=== PATIENT | male | born 1970 | race Caucasian/White ===

== ENCOUNTER 2017-11-06 22:04 | Emergency (ER) | payer MEDICAID, OTHER ==
[2017-11-06 22:10] VITALS: BP 114/67; PULSE 74; RESP 16; TEMP 97.5; O2SAT 98
--- NOTE | 2017-11-07 00:23 | ED PDOC ---
HPI: Psych/Substance Abuse Time Seen by Provider: 11/06/17 22:13 Chief Complaint (Nursing): Substance Abuse Chief Complaint (Provider): Substance Abuse History Per: Patient, EMS History/Exam Limitations: no limitations Onset/Duration Of Symptoms: Hrs (prior to arrival) Current Symptoms Are (Timing): Still Present Additional Complaint(s): Lele Clemente is a 47 year old male with no past medical history, who was brought to the ER by EMS for evaluation of substance abuse, s/p finding him laying on the ground on [address], prior to arrival. Patient admits to using K2 and states that he fell asleep after. He offers no other medical complaints and states that he did not want to come to the ER but was forced to by EMS. Patient denies any chest pain, shortness of breath, headaches, suicidal or homicidal ideation. PMD: none provided Past Medical History Reviewed: Historical Data, Nursing Documentation, Vital Signs Vital Signs: Last Vital Signs Temp 97.5 F L 11/06/17 22:05 Pulse 74 11/06/17 22:05 Resp 16 11/06/17 22:05 BP 114/67 11/06/17 22:05 Pulse Ox 98 11/06/17 22:05 - Medical History PMH: No Chronic Diseases - Surgical History Surgical History: No Surg Hx - Family History Family History: States: Unknown Family Hx - Social History Current smoker - smoking cessation education provided: Yes Alcohol: Other (uses, unspecified quantity) Drugs: Other (uses, unspecified ) - Home Medications Home Medications: Ambulatory Orders Medication Instructions Recorded No Known Home Med 06/11/15 - Allergies Allergies/Adverse Reactions: Allergies Allergy/AdvReac Type Severity Reaction Status Date / Time No Known Allergies Allergy Verified 06/11/15 19:56 Review of Systems ROS Statement: Except As Marked, All Systems Reviewed And Found Negative Cardiovascular: Negative for: Chest Pain Respiratory: Negative for: Shortness of Breath Neurological: Negative for: Headache Psych: Negative for: Suicidal ideation, Other (homicidal ideation) Physical Exam - Reviewed Nursing Documentation Reviewed: Yes Vital Signs Reviewed: Yes - Physical Exam Comments: GENERAL APPEARANCE: Patient is awake, alert, oriented x 3, in no acute distress. SKIN: Warm, dry; (-) cyanosis HEAD: (-) scalp swelling, (-) scalp tenderness. EYES: (-) conjunctival pallor, (-) scleral icterus, (-) nystagmus. ENMT: Mucous membranes moist. Airway patent: (-) stridor. NECK: Supple, FROM (-) tenderness, (-) stiffness, (-) lymphadenopathy. CHEST AND RESPIRATORY: (-) rales, (-) rhonchi, (-) wheezes; breath sounds equal. ABDOMEN: Soft, (-) distention, (-) tenderness, (-) guarding. NEURO AND PSYCH:(+) Awake, alert, oriented x3. (+) ambulatory in ED with a steady, unassisted gait. . Affect: Calm and cooperative. director of cardiopulmonary services: Intact. Pupils equal and reactive; EOMI; (-) facial asymmetry; tongue and uvula midline. - ECG O2 Sat by Pulse Oximetry: 98 (RA) Pulse Ox Interpretation: Normal Medical Decision Making Medical Decision Making: Time: 22:27 Patient is stable and offers no medical complaints upon arrival to the ED. He is alert, awake, and oriented. Upon provider evaluation, patient requires no further intervention at the ER and is stable to be discharged. VSS. Based on history, exam and diagnostic results, plan will be for outpatient follow up. Patient instructed to follow-up with pmd / referral provided / the clinic in 1- 2 days without fail. Return to the emergency room at any time for any new or worsening symptoms. Patient states he fully agrees with and understands discharge instructions. States that he agrees with the plan and disposition. Verbalized and repeated discharge instructions and plan. I have given the patient opportunity to ask any additional questions. Scribe Attestation: Documented by Gardenia Barksdale acting as a scribe for Nancy Ritter PA-C., MD Scribe Attestation: All medical record entries made by the Scribe were at my direction and personally dictated by me. I have reviewed the chart and agree that the record accurately reflects my personal performance of the history, physical exam, medical decision making, and the department course for this patient. I have also personally directed, reviewed, and agree with the discharge instructions and disposition. Disposition - Clinical Impression Clinical Impression: Substance abuse - Patient ED Disposition Is Patient to be Admitted: No Counseled Patient/Family Regarding: Diagnosis, Need For Followup - Disposition [facility] [[facility] Disposition: Routine/Home Disposition Time: 22:27 Condition: FAIR Instructions: Drug Abuse Treatment Forms: [employer] (Irish) Print Language: NEPALESE
== END 2017-11-06 22:35 | disposition home or self-care (01) ==
LOC: H.ER 22:04
DX: F19.10 Other psychoactive substance abuse, uncomplicated (principal); F17.200 Nicotine dependence, unspecified, uncomplicated

== ENCOUNTER 2018-01-19 17:34 | Emergency (ER) | payer MEDICAID, OTHER ==
[2018-01-19 17:40] VITALS: TEMP 97.9
[2018-01-19] MEDS ORDERED: Tdap Vaccine 0.5 ml Vial (10-64 yrs) IM ONE ×2 (18:51→21:11)
[2018-01-19 19:18] LABS: BASO # 0.1 K/uL (0.0-0.2); BASO % 0.7 % (0.0-2.0); EOS # 0.2 K/uL (0.0-0.7); EOS % 2.9 % (0.0-4.0); HEMOGLOBIN 14.2 g/dL (12.0-18.0); LYMPH # 1.8 K/uL (1.0-4.3); LYMPH % 21.7 % (20.0-40.0); MEAN CELL VOLUME 84.7 fl (80.0-94.0); MEAN CORPUSCULAR HEMOGLOBIN 28.5 pg (27.0-31.0); MEAN CORPUSCULAR HGB CONC 33.6 g/dL (33.0-37.0); MEAN PLATELET VOLUME 8.4 fl (7.2-11.7); MONO # 0.7 K/uL (0.0-0.8); MONO % 8.7 % (0.0-10.0); NEUT # 5.5 K/uL (1.8-7.0); NRBC % 0.2 % (0.0-0.0); RBC 4.99 Mil/uL (4.40-5.90); RED CELL DISTRIBUTION WIDTH 14.9 % (11.5-14.5); WHITE BLOOD COUNT 8.4 K/uL (4.8-10.8)
[2018-01-19 19:19] LABS: ALB/GLOB RATIO 1.1 (1.0-2.1); ALBUMIN 3.5 g/dL (3.5-5.0); ALT/SGPT 67 U/L (21-72); AST/SGOT 39 U/L (17-59); BLOOD UREA NITROGEN 16 mg/dl (9-20); CALCIUM 8.5 mg/dL (8.4-10.2); GFR AFRICAN-AMERICAN > 60; GFR NON-AFRICAN AMERICAN > 60
--- NOTE | 2018-01-19 19:59 | ED PDOC ---
HPI: General Adult Time Seen by Provider: 01/19/18 17:40 Chief Complaint (Nursing): Medical Clearance History Per: Patient Additional Complaint(s): Pt. brought in by [facility] SUE for medical/psychiatric clearance. Pt. c/o feeling suicidal. States he wants to "commit suicide by certified endoscopy technician." Admits to using heroin 3 hours prior to getting arrested. Denies head injury, trauma, hallucinations. Past Medical History Reviewed: Historical Data, Nursing Documentation, Vital Signs Vital Signs: Last Vital Signs Temp 97.9 F 01/19/18 22:06 Pulse 77 01/19/18 22:06 Resp 18 01/19/18 22:06 BP 133/77 01/19/18 22:06 Pulse Ox 100 01/20/18 01:09 - Surgical History Surgical History: No Surg Hx - Family History Family History: States: Unknown Family Hx - Immunization History Hx Tetanus Toxoid Vaccination: No Hx Influenza Vaccination: No Hx Pneumococcal Vaccination: No - Home Medications Home Medications: Ambulatory Orders Medication Instructions Recorded No Known Home Med 06/11/15 - Allergies Allergies/Adverse Reactions: Allergies Allergy/AdvReac Type Severity Reaction Status Date / Time No Known Allergies Allergy Verified 06/11/15 19:56 Review of Systems Review Of Systems: ROS cannot be obtained secondary to pt's inabilty to answer questions. Physical Exam - Physical Exam Appears: Positive for: Well, Non-toxic, No Acute Distress (somnolent but arousable) Head Exam: Negative for: ATRAUMATIC (nasal tenderness with superficial abrasion) , NORMAL INSPECTION, NORMOCEPHALIC Skin: Positive for: Normal Color, Warm. Negative for: Rash Eye Exam: Positive for: EOMI, Normal appearance, PERRL ENT: Positive for: Normal ENT Inspection, TM Is/Are (no hemotympanum b/l), Other (no septal hematoma b/l) Neck: Positive for: Normal, Painless ROM Cardiovascular/Chest: Positive for: Regular Rate, Rhythm, Chest Non Tender Respiratory: Positive for: CNT, Normal Breath Sounds Gastrointestinal/Abdominal: Positive for: Normal Exam, Bowel Sounds, Soft. Negative for: Tenderness Back: Positive for: Normal Inspection. Negative for: L CVA Tenderness, R CVA Tenderness, Vertebral Tenderness Neurologic/Psych: Positive for: Alert, Oriented - Laboratory Results Result Diagrams: 01/19/18 19:00 01/19/18 19:00 - ECG O2 Sat by Pulse Oximetry: 100 - Progress ED Course And Treament: Labs, CT head w/o contrast ordered. Disposition - Clinical Impression Clinical Impression: Head injury, Opioid use disorder - Patient ED Disposition Is Patient to be Admitted: Transfer of Care (Signed out to Fox HANCOCK pending crisis and CT head) - Disposition Referrals: [facility] [Outside] Disposition: Transfer of Care Disposition Time: 20:01 Condition: STABLE Additional Instructions: Patient medically and psychiatrically cleared for incarceration Instructions: Closed Head Injury, Opioid Use Disorder
--- NOTE | 2018-01-19 20:16 | ED PDOC ---
- Laboratory Results Result Diagrams: 01/19/18 19:00 01/19/18 19:00 - ECG ECG: Positive for: Viewed By Me (reviewed by ED attending) ECG Rhythm: Positive for: Sinus Rhythm (no changes from previous) O2 Sat by Pulse Oximetry: 100 - Progress ED Course And Treament: case endorsed to documentation writer from Katherine HANCOCK pending CT head, crisis eval and final dispo EXAM: CT Head Without Intravenous Contrast EXAM DATE/TIME: 01/19/2018 6:51 PM CLINICAL HISTORY: 47 years old, male; Signs and symptoms; Other: Psych eval, ? fall; Additional info: ? Fall TECHNIQUE: Axial computed tomography images of the head/brain without intravenous contrast. All CT scans at this facility use one or more dose reduction techniques, viz.: automated exposure control; ma/kV adjustment per patient size (including targeted exams where dose is matched to indication; i.e. head); or iterative reconstruction technique. Coronal and sagittal reformatted images provided and reviewed. COMPARISON: CT - HEAD W/O CONTRAST 2015-06-11 21:39 FINDINGS: Brain: No intracranial hemorrhage. No evidence of evolved territorial infarct or cerebral edema. No mass effect or midline shift. Ventricles: Unremarkable. No ventriculomegaly. Bones/joints: Chronic appearing nasal bone fractures. No calvarial fracture. Soft tissues: No soft tissue swelling. Sinuses: Visualized paranasal sinuses are clear. Mastoid air cells: Trace bilateral mastoid opacification. IMPRESSION: No acute intracranial findings. Patient evaluated by cable worker helper and cleared for d/c as per Dr. Aguirre 22:00 Patient AAOx3, ambulating steady gait. Patient educated on all lab/imaging findings, potassium PO given. Advised follow up PMD 2-3 days.Return precautions given Disposition - Clinical Impression Clinical Impression: Head injury, Opioid use disorder - POA Present On Arrival: None - Disposition Referrals: [facility] [Outside] Disposition: Discharged/Transfer to Law Enforcement Disposition Time: 21:22 Condition: STABLE Additional Instructions: Patient medically and psychiatrically cleared for incarceration Instructions: Closed Head Injury, Opioid Use Disorder
[2018-01-19 21:19] LABS: URINE BILIRUBIN NEGATIVE (NEGATIVE); URINE BLOOD NEGATIVE (NEGATIVE); URINE CLARITY CLEAR (Clear); URINE COLOR YELLOW (YELLOW); URINE GLUCOSE (UA) NEG (Normal); URINE LEUKOCYTE ESTERASE NEG Leu/uL (Negative); URINE PROTEIN NEGATIVE (NEGATIVE)
[2018-01-19] MEDS ORDERED: Potassium Chloride 20 mEq ER Tab PO ONE ×2 (21:22→21:46)
[2018-01-19 21:53] LABS: PHENCYCLIDINE, UR NEGATIVE (NEGATIVE)
[2018-01-19 21:55] LABS: BARBITURATES, UR NEGATIVE (NEGATIVE); BENZODIAZEPINES, UR NEGATIVE (NEGATIVE); OPIATES, UR POSITIVE (NEGATIVE)
[2018-01-19 22:07] VITALS: BP 133/77; PULSE 77; RESP 18
[2018-01-20 01:08] VITALS: O2SAT 100
--- NOTE | 2018-01-20 08:36 | CT ---
PROCEDURE: CT HEAD WITHOUT CONTRAST. HISTORY: ? fall COMPARISON: 06/11/2015. TECHNIQUE: Axial computed tomography images were obtained through the head/brain without intravenous contrast. Radiation dose: Total exam DLP = 1148.67 mGy-cm. This CT exam was performed using one or more of the following dose reduction techniques: Automated exposure control, adjustment of the mA and/or kV according to patient size, and/or use of iterative reconstruction technique. FINDINGS: HEMORRHAGE: No intracranial hemorrhage. BRAIN: Dunne-white matter differentiation is preserved. There is no mass, mass effect or abnormal extra-axial fluid collection. There is no territorial infarction. VENTRICLES: The ventricles are normal in size, shape and configuration. CALVARIUM: There is no acute calvarial fracture or extracranial soft tissue swelling. There are old fracture deformities in bilateral nasal bones. PARANASAL SINUSES: There is mild mucosal thickening in the right maxillary sinus, otherwise predominantly clear. MASTOID AIR CELLS: Predominantly clear. OTHER FINDINGS: None. IMPRESSION: No acute intracranial abnormality. A preliminary report was provided by [employer].
--- NOTE | 2018-01-21 10:58 | CARD ---
APPROVED REPORT EKG Measurement Heart [id number] <Conclusion> Sinus rhythm with marked sinus arrhythmia Rightward axis Pulmonary disease pattern Abnormal ECG
== END 2018-01-19 22:12 ==
LOC: H.ER 17:34
DX: R45.851 Suicidal ideations (principal); F11.10 Opioid abuse, uncomplicated; S09.90XA Unspecified injury of head, initial encounter; Y92.89 Other specified places as the place of occurrence of the external cause

== ENCOUNTER 2018-09-20 01:04 | Emergency (ER) | payer MEDICAID, OTHER ==
--- NOTE | 2018-09-20 03:12 | ED PDOC ---
Lower Extremity Pain/Injury Time Seen by Provider: 09/20/18 02:34 Chief Complaint (Nursing): Lower Extremity Problem/Injury Chief Complaint (Provider): right knee pain History Per: Patient History/Exam Limitations: no limitations Onset/Duration Of Symptoms: Days (2) Current Symptoms Are (Timing): Still Present Additional Complaint(s): 48 y/o male presents for evaluation of right knee pain x 2 days. Patient states he jumped off of 4 stairs to the ground and when he landed his twisted his right knee. Patient reports pain with weight-bearing since then. Denies num bness/weakness right lower extremity, swelling, deformity - Hip Description Of Injury: Fell Past Medical History Reviewed: Historical Data, Nursing Documentation, Vital Signs Vital Signs: Last Vital Signs Temp 98.0 F 09/20/18 01:32 Pulse 57 L 09/20/18 01:32 Resp 17 09/20/18 01:32 BP 105/60 09/20/18 01:32 Pulse Ox 98 09/20/18 01:32 - Medical History PMH: No Chronic Diseases Denies: Diabetes, Hepatitis, HIV, HTN, Seizures, Sexually Transmitted Disease - Surgical History Surgical History: No Surg Hx - Family History Family History: States: Unknown Family Hx - Immunization History Hx Tetanus Toxoid Vaccination: No Hx Influenza Vaccination: No Hx Pneumococcal Vaccination: No - Home Medications Home Medications: Ambulatory Orders Medication Instructions Recorded Naproxen [Naprosyn] 500 mg PO Q12 PRN #20 tablet 09/20/18 - Allergies Allergies/Adverse Reactions: Allergies Allergy/AdvReac Type Severity Reaction Status Date / Time No Known Allergies Allergy Verified 06/11/15 19:56 Review of Systems Musculoskeletal: Positive for: Leg Pain (right knee pain) Physical Exam - Reviewed Nursing Documentation Reviewed: Yes Vital Signs Reviewed: Yes - Physical Exam Appears: Positive for: Well, Non-toxic, No Acute Distress Skin: Positive for: Normal Color Pulses-Dorsalis Pedis (L): 2+ Pulses-Dorsalis Pedis (R): 2+ Pulses-Post. Tibialis (L): 2+ Pulses-Post. Tibialis (R): 2+ Extremity: Positive for: Normal ROM. Negative for: Tenderness, Calf Tenderness, Swelling Neurologic/Psych: Positive for: Alert, Oriented (x3) - ECG O2 Sat by Pulse Oximetry: 98 - Other Rad xray right knee X-Ray: Viewed By Me X-Ray Interpretation: no acute findings - Progress ED Course And Treament: -right knee xray Patient educated on findings, SAJI wrap applied ot knee Advised RICE. Rx Naproxen given Advised follow up PMD/ortho Return precautions given Disposition - Clinical Impression Clinical Impression: Knee injury - Patient ED Disposition Is Patient to be Admitted: No Counseled Patient/Family Regarding: Studies Performed, Diagnosis, Need For Followup, Rx Given - Disposition Referrals: [facility] [Outside] Khalif Santiago MD [Medical Doctor] - Disposition: Routine/Home Disposition Time: 03:57 Condition: IMPROVED Prescriptions: Naproxen [Naprosyn] 500 mg PO Q12 PRN #20 tablet PRN Reason: Pain, Moderate (4-7) Instructions: Knee Sprain (DC)
[2018-09-20 04:23] VITALS: BP 113/63; PULSE 61; RESP 16; TEMP 97.9; O2SAT 96
--- NOTE | 2018-09-20 08:26 | RAD ---
Date of service: 09/20/2018 PROCEDURE: Right Knee Radiographs. HISTORY: injury COMPARISON: None. FINDINGS: BONES: No acute fracture or destructive bony lesion identified. JOINTS: Joint space narrowing is identified at the medial femorotibial compartment. No osteophyte development throughout. No subluxation or dislocation. JOINT EFFUSION: None. OTHER FINDINGS: None. IMPRESSION: Mild degenerative joint disease. No acute fracture or dislocation identified, right knee.
== END 2018-09-20 04:23 | disposition home or self-care (01) ==
LOC: H.ER 01:04
DX: S89.91XA Unspecified injury of right lower leg, initial encounter (principal); X50.9XXA Other and unspecified overexertion or strenuous movements or postures, initial encounter; Y92.89 Other specified places as the place of occurrence of the external cause

== ENCOUNTER 2018-11-02 02:56 | Emergency (ER) | payer OTHER ==
[2018-11-02 03:18] VITALS: O2SAT 97
[2018-11-02] MEDS ORDERED: Albuterol-Ipratrop 3 mg / 0.5 (3 ml) UD INH STA (03:54)
[2018-11-02] MEDS ORDERED: Albuterol-Ipratrop 3 mg / 0.5 (3 ml) UD ONE ×2 (04:07→04:14)
--- NOTE | 2018-11-02 04:20 | ED PDOC ---
HPI: Chest Pain Time Seen by Provider: 11/02/18 03:14 Chief Complaint (Nursing): Chest Pain Chief Complaint (Provider): Chest Pain History Per: Patient History/Exam Limitations: no limitations Onset/Duration Of Symptoms: Days (x 2) Current Symptoms Are (Timing): Still Present Quality: "Pain" Associated Symptoms: Dyspnea Modifying Factors: None Additional Complaint(s): 48 year old undomiciled male with no significant medical history presents to the ED for chest pain and shortness of breath x 2 days. Denies fever, nausea, vomiting and diaphoresis. PMD: none provided Past Medical History Reviewed: Historical Data, Nursing Documentation, Vital Signs Vital Signs: Last Vital Signs Temp 97.8 F 11/02/18 03:15 Pulse 59 L 11/02/18 03:15 Resp 16 11/02/18 03:15 BP 147/88 11/02/18 03:15 Pulse Ox 97 11/02/18 03:15 - Medical History PMH: Denies: Diabetes, Hepatitis, HIV, HTN, Seizures, Sexually Transmitted Disease - Surgical History Surgical History: No Surg Hx - Family History Family History: States: Unknown Family Hx - Social History Current smoker - smoking cessation education provided: No Alcohol: None Drugs: Denies - Immunization History Hx Tetanus Toxoid Vaccination: No Hx Influenza Vaccination: No Hx Pneumococcal Vaccination: No - Home Medications Home Medications: Ambulatory Orders Medication Instructions Recorded Naproxen [Naprosyn] 500 mg PO Q12 PRN #20 tablet 09/20/18 Albuterol HFA [Ventolin HFA 90 1 - 2 puff IH Q6 PRN #1 inhaler 11/02/18 mcg/actuation (8 g)] predniSONE [predniSONE Tab] 60 mg PO QAM #12 tab 11/02/18 - Allergies Allergies/Adverse Reactions: Allergies Allergy/AdvReac Type Severity Reaction Status Date / Time No Known Allergies Allergy Verified 06/11/15 19:56 Review of Systems ROS Statement: Except As Marked, All Systems Reviewed And Found Negative Cardiovascular: Positive for: Chest Pain Respiratory: Positive for: Shortness of Breath Physical Exam - Reviewed Nursing Documentation Reviewed: Yes Vital Signs Reviewed: Yes - Physical Exam Appears: Positive for: Non-toxic, No Acute Distress Head Exam: Positive for: ATRAUMATIC, NORMAL INSPECTION, NORMOCEPHALIC Skin: Positive for: Normal Color, Warm, Dry. Negative for: Rash Eye Exam: Positive for: EOMI, Normal appearance, PERRL Neck: Positive for: Normal, Painless ROM, Supple Cardiovascular/Chest: Positive for: Regular Rate, Rhythm. Negative for: Murmur Respiratory: Positive for: Decreased Breath Sounds (decreased air entry), Wheezing (bilateral). Negative for: Respiratory Distress Gastrointestinal/Abdominal: Positive for: Normal Exam, Soft. Negative for: Tenderness Back: Positive for: Normal Inspection. Negative for: L CVA Tenderness, R CVA Tenderness Extremity: Positive for: Normal ROM. Negative for: Deformity Neurological/Psych: Positive for: Awake, Alert, Normal Tone, Oriented. Negative for: Motor/Sensory Deficits - ECG O2 Sat by Pulse Oximetry: 97 (RA) Pulse Ox Interpretation: Normal Medical Decision Making Medical Decision Makin:38 Impression: t48 year old male with acute bronchtiis Initial Plan: Trials of duonebs and prednisone Scribe Attestation: Documented by Samantha Shine, acting as a scribe Claudine Arias MD Provider Scribe Attestation: All medical record entries made by the Scribe were at my direction and personally dictated by me. I have reviewed the chart and agree that the record accurately reflects my personal performance of the history, physical exam, medical decision making, and the department course for this patient. I have also personally directed, reviewed, and agree with the discharge instructions and disposition Disposition - Clinical Impression Clinical Impression: Bronchitis - Disposition Disposition: Routine/Home Disposition Time: 04:00 Condition: STABLE Prescriptions: Albuterol HFA [Ventolin HFA 90 mcg/actuation (8 g)] 1 - 2 puff IH Q6 PRN #1 inhaler PRN Reason: Shortness Of Breath predniSONE [predniSONE Tab] 60 mg PO QAM #12 tab Instructions: Acute Bronchitis Forms: [employer] (Belarusian)
[2018-11-02 06:51] VITALS: BP 130/85; PULSE 60; RESP 18; TEMP 97.7
--- NOTE | 2018-11-02 08:39 | CARD ---
APPROVED REPORT Date of service: 11/02/2018 EKG Measurement Heart [id number] 178P [id number] <Conclusion> Possible ectopic atrial rhythm Right superior axis deviation ST & T wave abnormality, consider inferior ischemia Abnormal ECG
== END 2018-11-02 07:00 | disposition home or self-care (01) ==
LOC: H.ER 02:56
DX: J40 Bronchitis, not specified as acute or chronic (principal)

== ENCOUNTER 2018-11-07 00:21 | Emergency (ER) | payer SELFPAY ==
[2018-11-07 00:29] VITALS: BP 109/68; RESP 18; TEMP 98.2; O2SAT 99
[2018-11-07] MEDS ORDERED: Albuterol-Ipratrop 3 mg / 0.5 (3 ml) UD INH STA (01:36)
--- NOTE | 2018-11-07 02:16 | ED PDOC ---
HPI: Asthma Time Seen by Provider: 11/07/18 01:17 Chief Complaint (Nursing): Chest Pain History Per: Patient Additional Complaint(s): Pt. states for the past month he's had cough and wheezing. Of note, pt. states he was seen here for the same exact symptoms last week and was prescribed albuterol and steroids but did not get meds as he does not have insurance. Denies chest pain, fever, hemoptysis, sick contacts, recent travel, [place]. Past Medical History Reviewed: Historical Data, Nursing Documentation, Vital Signs Vital Signs: Last Vital Signs Temp 98.2 F 11/07/18 00:27 Pulse 78 11/07/18 00:27 Resp 18 11/07/18 00:27 BP 109/68 11/07/18 00:27 Pulse Ox 99 11/07/18 00:27 - Medical History PMH: Denies: Diabetes, Hepatitis, HIV, HTN, Seizures, Sexually Transmitted Disease - Surgical History Surgical History: No Surg Hx - Family History Family History: States: No Known Family Hx - Immunization History Hx Tetanus Toxoid Vaccination: No Hx Influenza Vaccination: No Hx Pneumococcal Vaccination: No - Home Medications Home Medications: Ambulatory Orders Medication Instructions Recorded Naproxen [Naprosyn] 500 mg PO Q12 PRN #20 tablet 09/20/18 Albuterol HFA [Ventolin HFA 90 1 - 2 puff IH Q6 PRN #1 inhaler 11/02/18 mcg/actuation (8 g)] predniSONE [predniSONE Tab] 60 mg PO QAM #12 tab 11/02/18 - Allergies Allergies/Adverse Reactions: Allergies Allergy/AdvReac Type Severity Reaction Status Date / Time No Known Allergies Allergy Verified 06/11/15 19:56 Review of Systems ROS Statement: Except As Marked, All Systems Reviewed And Found Negative Respiratory: Positive for: Cough, Wheezing Physical Exam - Physical Exam Appears: Positive for: Well, Non-toxic, No Acute Distress Skin: Positive for: Normal Color, Warm. Negative for: Rash Eye Exam: Positive for: Normal appearance Cardiovascular/Chest: Positive for: Regular Rate, Rhythm Respiratory: Positive for: Wheezing (b/l expiratory wheezing). Negative for: Decreased Breath Sounds, Accessory Muscle Use, Respiratory Distress Neurological/Psych: Positive for: Awake, Alert, Oriented (x3) - ECG ECG: Positive for: Interpreted By Me ECG Rhythm: Positive for: Sinus Bradycardia. Negative for: ST/T Changes Rate: 52 O2 Sat by Pulse Oximetry: 99 - Radiology X-Ray: Interpreted by Me (CXR) X-Ray Interpretation: No Acute Disease - Progress ED Course And Treament: DuoNeb x 3, prednisone, CXR ordered. On re-evaluation, pt. reports good relief dyspnea. Lungs clear b/l. Reports that he still has Rx for albuterol and steroids. Disposition - Clinical Impression Clinical Impression: Bronchospasm, acute - Patient ED Disposition Is Patient to be Admitted: No - Disposition Disposition: Routine/Home Disposition Time: 02:30 Condition: IMPROVED Additional Instructions: COLLIN SULLIVAN, thank you for letting us take care of you today. Your provider was Patt Moseley MD and you were treated for CHEST PAIN. The emergency medical care you received today was directed at your acute symptoms. If you were prescribed any medication, please fill it and take as directed. It may take several days for your symptoms to resolve. Return to the Emergency Department if your symptoms worsen, do not improve, or if you have any other problems. Please contact your doctor or call one of the physicians/clinics you have been referred to that are listed on the Patient Visit Information form that is included in your discharge packet. Bring any paperwork you were given at discharge with you along with any medications you are taking to your follow up visit. Our treatment cannot replace ongoing medical care by a primary care provider outside of the emergency department. Thank you for allowing the [facility] team to be part of your care today. If you had an X-Ray or CT scan: A Radiologist will review the ED reading if any change in treatment is needed we will contact you. If you had a blood, urine, or wound culture: It will take several days for the results, if any change in treatment is needed we will contact you. If you had an STI test: It will take 48 hours for the results. Please call after 1 week if you have not heard back. Instructions: Asthma, Adult (DC) Forms: [employer] (Divehi)
[2018-11-07] MEDS ORDERED: Albuterol-Ipratrop 3 mg / 0.5 (3 ml) UD ONE (02:25)
[2018-11-07 05:12] VITALS: PULSE 52
--- NOTE | 2018-11-07 08:43 | RAD ---
Date of service: 11/07/2018 HISTORY: cough COMPARISON: No prior. TECHNIQUE: Chest PA and lateral views FINDINGS: LUNGS: No active pulmonary disease. PLEURA: No significant pleural effusion identified. No pneumothorax apparent. CARDIOVASCULAR: No aortic atherosclerotic calcification present. Normal cardiac size. No pulmonary vascular congestion. OSSEOUS STRUCTURES: No significant abnormalities. VISUALIZED UPPER ABDOMEN: Normal. OTHER FINDINGS: None. IMPRESSION: No acute cardiopulmonary disease appreciated.
--- NOTE | 2018-11-07 09:04 | CARD ---
APPROVED REPORT Date of service: 11/07/2018 EKG Measurement Heart [id number] CT [id number] [id number] <Conclusion> Sinus bradycardia Rightward axis Borderline ECG
== END 2018-11-07 03:30 | disposition home or self-care (01) ==
LOC: H.ER 00:21
DX: J98.01 Acute bronchospasm (principal)

== ENCOUNTER 2018-11-17 03:04 | Emergency (ER) | payer SELFPAY ==
[2018-11-17 03:38] VITALS: O2SAT 98
--- NOTE | 2018-11-17 05:20 | ED PDOC ---
Lower Extremity Pain/Injury Time Seen by Provider: 11/17/18 04:26 Chief Complaint (Nursing): Lower Extremity Problem/Injury Chief Complaint (Provider): Lower Extremity Problem/Injury History Per: Patient History/Exam Limitations: no limitations Onset/Duration Of Symptoms: Days (x a few weeks ) Current Symptoms Are (Timing): Still Present Additional Complaint(s): 48 year old male presents to the ED for evaluation of multiple complaints. Patient states a few weeks ago, he landed on his right knee and thinks he twisted it. He now reports pain to the area, but has not difficulty ambulating. Patient also complains of a "ball" in his right groin when he coughs hard. He has normal stools. Denies fever, nausea and vomiting. PMD: none provided - Knee Description Of Injury: Twisted Past Medical History Reviewed: Historical Data, Nursing Documentation, Vital Signs Vital Signs: Last Vital Signs Temp 97.6 F 11/17/18 03:36 Pulse 60 11/17/18 03:36 Resp 18 11/17/18 03:36 BP 135/83 11/17/18 03:36 Pulse Ox 98 11/17/18 03:36 - Medical History PMH: Denies: Diabetes, Hepatitis, HIV, HTN, Seizures, Sexually Transmitted Disease - Family History Family History: States: Unknown Family Hx - Immunization History Hx Tetanus Toxoid Vaccination: No Hx Influenza Vaccination: No Hx Pneumococcal Vaccination: No - Home Medications Home Medications: Ambulatory Orders Medication Instructions Recorded Naproxen [Naprosyn] 500 mg PO Q12 PRN #20 tablet 09/20/18 Albuterol HFA [Ventolin HFA 90 1 - 2 puff IH Q6 PRN #1 inhaler 11/02/18 mcg/actuation (8 g)] predniSONE [predniSONE Tab] 60 mg PO QAM #12 tab 11/02/18 Naproxen [Naprosyn] 500 mg PO BID #30 tablet 11/17/18 - Allergies Allergies/Adverse Reactions: Allergies Allergy/AdvReac Type Severity Reaction Status Date / Time No Known Allergies Allergy Verified 06/11/15 19:56 Review of Systems ROS Statement: Except As Marked, All Systems Reviewed And Found Negative Constitutional: Negative for: Fever Gastrointestinal: Negative for: Nausea, Vomiting Genitourinary Male: Positive for: Other ("ball" in right side of groin present when he coughs) Physical Exam - Reviewed Nursing Documentation Reviewed: Yes Vital Signs Reviewed: Yes - Physical Exam Appears: Positive for: Non-toxic, No Acute Distress Head Exam: Positive for: ATRAUMATIC, NORMAL INSPECTION, NORMOCEPHALIC Skin: Positive for: Normal Color, Warm, Dry Eye Exam: Positive for: EOMI, Normal appearance, PERRL Neck: Positive for: Normal, Painless ROM, Supple Cardiovascular/Chest: Positive for: Regular Rate, Rhythm. Negative for: Murmur Respiratory: Positive for: Normal Breath Sounds. Negative for: Respiratory Distress Gastrointestinal/Abdominal: Positive for: Normal Exam, Soft. Negative for: Tenderness Back: Positive for: Normal Inspection. Negative for: L CVA Tenderness, R CVA Tenderness Extremity: Positive for: Normal ROM (Full ROM at right knee; neurovascularly intact), Swelling (minimal joint effusion at right knee), Other (5/5 strength ). Negative for: Deformity Neurological/Psych: Positive for: Awake, Alert, Normal Tone, Oriented (x 3). Negative for: Motor/Sensory Deficits - ECG O2 Sat by Pulse Oximetry: 98 (RA) Pulse Ox Interpretation: Normal Medical Decision Making Medical Decision Makin:26 A&P: mild knee sprain and possible small inguinal hernia that is neither strangulated or incarcerated and easily reduced given no sign of hernia currently Patient advised to follow up with orthopedic clinic. Scribe Attestation: Documented by Samantha Shine, acting as a scribe Ana Ye MD Provider Scribe Attestation: All medical record entries made by the Scribe were at my direction and personally dictated by me. I have reviewed the chart and agree that the record accurately reflects my personal performance of the history, physical exam, medical decision making, and the department course for this patient. I have also personally directed, reviewed, and agree with the discharge instructions and disposition. Disposition - Clinical Impression Clinical Impression: Knee pain, Hernia - Disposition Referrals: [facility] [place] [Outside] Disposition: Routine/Home Disposition Time: 04:20 Condition: STABLE Prescriptions: Naproxen [Naprosyn] 500 mg PO BID #30 tablet Instructions: Groin Hernia (DC), Knee Pain (DC) Forms: [employer] (Faroese)
[2018-11-17 05:27] VITALS: BP 131/72; PULSE 82; RESP 15; TEMP 97.9
== END 2018-11-17 05:31 | disposition home or self-care (01) ==
LOC: H.ER 03:04
DX: M25.561 Pain in right knee (principal); K46.9 Unspecified abdominal hernia without obstruction or gangrene

== ENCOUNTER 2018-11-21 02:58 | Emergency (ER) | payer OTHER ==
[2018-11-21] MEDS ORDERED: Iohexol 240 (50 ml) PO ONE (04:26)
[2018-11-21] MEDS ORDERED: Iohexol 240 (50 ml) ONE (04:31)
[2018-11-21 04:47] LABS: BASO % 0.7 % (0.0-2.0); EOS # 0.2 K/uL (0.0-0.7); EOS % 3.7 % (0.0-4.0); HEMOGLOBIN 13.3 g/dL (12.0-18.0); LYMPH # 1.8 K/uL (1.0-4.3); LYMPH % 27.1 % (20.0-40.0); MEAN CORPUSCULAR HGB CONC 32.2 g/dL (33.0-37.0); MEAN PLATELET VOLUME 7.8 fl (7.2-11.7); MONO # 0.6 K/uL (0.0-0.8); MONO % 9.4 % (0.0-10.0); NEUT # 3.9 K/uL (1.8-7.0); NEUT % 59.1 % (50.0-75.0); RBC 4.76 Mil/uL (4.40-5.90); RED CELL DISTRIBUTION WIDTH 15.9 % (11.5-14.5); WHITE BLOOD COUNT 6.5 K/uL (4.8-10.8)
[2018-11-21 04:53] LABS: ALB/GLOB RATIO 1.2 (1.0-2.1); ALBUMIN 3.4 g/dL (3.5-5.0); ALT/SGPT 44 U/L (21-72); AST/SGOT 40 U/L (17-59); BLOOD UREA NITROGEN 20 mg/dl (9-20); CALCIUM 8.9 mg/dL (8.4-10.2); GFR NON-AFRICAN AMERICAN > 60
--- NOTE | 2018-11-21 05:20 | ED PDOC ---
HPI: Abdomen Time Seen by Provider: 11/21/18 03:00 Chief Complaint (Nursing): Male Genitourinary Chief Complaint (Provider): Abdominal Pain History Per: Patient History/Exam Limitations: no limitations Onset/Duration Of Symptoms: Persistent Current Symptoms Are (Timing): Still Present Location Of Pain/Discomfort: RLQ Quality Of Discomfort: "Pain" Exacerbating Factors: Cough Additional Complaint(s): 48 year old male presents to the ED for evaluation of right lower quadrant abdominal pain. Patient was treated in this ED on 11/17 for the same complaint and found to have a slight hernia with no strangulation. He reports pain worsens with he coughs hard. Patient states that pain worsens when he coughs hard. Denies fever, nausea, vomiting and diarrhea. PMD: none provided Past Medical History Reviewed: Historical Data, Nursing Documentation, Vital Signs Vital Signs: Last Vital Signs Temp 97.5 F L 11/21/18 03:27 Pulse 84 11/21/18 03:27 Resp 18 11/21/18 03:27 BP 116/68 11/21/18 03:27 Pulse Ox 97 11/21/18 03:27 - Medical History PMH: No Chronic Diseases Denies: Depression, Diabetes, Hepatitis, HIV, HTN, Seizures, Sexually Transmitted Disease - Surgical History Surgical History: No Surg Hx - Family History Family History: States: Unknown Family Hx - Social History Current smoker - smoking cessation education provided: Yes SMOKER/PACKS PER DAY:: 1 Alcohol: > 2 Drinks/Day (last drink was three hours ago) Drugs: Denies - Immunization History Hx Tetanus Toxoid Vaccination: No Hx Influenza Vaccination: No Hx Pneumococcal Vaccination: No - Home Medications Home Medications: Ambulatory Orders Medication Instructions Recorded Naproxen [Naprosyn] 500 mg PO Q12 PRN #20 tablet 09/20/18 Albuterol HFA [Ventolin HFA 90 1 - 2 puff IH Q6 PRN #1 inhaler 11/02/18 mcg/actuation (8 g)] predniSONE [predniSONE Tab] 60 mg PO QAM #12 tab 11/02/18 Naproxen [Naprosyn] 500 mg PO BID #30 tablet 11/17/18 - Allergies Allergies/Adverse Reactions: Allergies Allergy/AdvReac Type Severity Reaction Status Date / Time No Known Allergies Allergy Verified 11/21/18 03:29 Review of Systems ROS Statement: Except As Marked, All Systems Reviewed And Found Negative Gastrointestinal: Positive for: Abdominal Pain (RLQ) Physical Exam - Reviewed Nursing Documentation Reviewed: Yes Vital Signs Reviewed: Yes - Physical Exam Appears: Positive for: Non-toxic, No Acute Distress (sleeping on exam) Head Exam: Positive for: ATRAUMATIC, NORMAL INSPECTION, NORMOCEPHALIC Skin: Positive for: Normal Color, Warm, DRY Eye Exam: Positive for: EOMI, Normal appearance, PERRL Neck: Positive for: Normal, Painless ROM, Supple Cardiovascular/Chest: Positive for: Regular Rate, Rhythm Respiratory: Positive for: Normal Breath Sounds. Negative for: Respiratory Distress Gastrointestinal/Abdominal: Positive for: Normal Exam, Soft. Negative for: Tenderness Back: Positive for: Normal Inspection. Negative for: L CVA Tenderness, R CVA Tenderness Extremity: Positive for: Normal ROM (x 4). Negative for: Deformity Neurological/Psych: Positive for: Awake, Alert, Normal Tone, Oriented (x 3). Negative for: Motor/Sensory Deficits - Laboratory Results Result Diagrams: 11/21/18 04:37 11/21/18 04:37 Lab Results: Total Bilirubin 0.4 mg/dl (0.2-1.3) 11/21/18 04:37 AST 40 U/L (17-59) 11/21/18 04:37 ALT 44 U/L (21-72) 11/21/18 04:37 Alkaline Phosphatase 59 U/L (38-126) 11/21/18 04:37 Total Protein 6.3 G/DL (6.3-8.2) 11/21/18 04:37 Albumin 3.4 g/dL (3.5-5.0) L 11/21/18 04:37 Globulin 2.9 gm/dL (2.2-3.9) 11/21/18 04:37 Albumin/Globulin Ratio 1.2 (1.0-2.1) 11/21/18 04:37 - ECG O2 Sat by Pulse Oximetry: 97 (RA) Pulse Ox Interpretation: Normal Medical Decision Making Medical Decision Makin:26 Impression: abdominal pain, rule out hernia, appendicitis, other infection or inflammation Initial Plan: --Abd & pelvis CT w/ contrast --Omnipaque 50 ml PO --CBC --CMP --Urine cx --UA 07:00 Patient will be signed out to Dr. Bang pending workup, re-evaluation and final disposition. Patient is stable with normal vitals and in no distress. Scribe Attestation: Documented by Samantha Shine, acting as a scribe for Patt Moseley MD Provider Scribe Attestation: All medical record entries made by the Scribe were at my direction and personally dictated by me. I have reviewed the chart and agree that the record accurately reflects my personal performance of the history, physical exam, medical decision making, and the department course for this patient. I have also personally directed, reviewed, and agree with the discharge instructions and disposition. Disposition - Clinical Impression Clinical Impression: Abdominal pain - Patient ED Disposition Is Patient to be Admitted: Transfer of Care - Disposition Disposition: Transfer of Care Disposition Time: 07:00 Condition: STABLE Forms: [employer] (Korean) Patient Signed Over To: Ayden Bang
[2018-11-21] MEDS ORDERED: Sodium Chloride 0.9% 50 ML IV ONE (06:26)
[2018-11-21] MEDS ORDERED: Iohexol 300 100 ML IJ ONE (06:26)
[2018-11-21 07:47] VITALS: BP 128/74; PULSE 68; TEMP 97.8; O2SAT 96
[2018-11-21 08:32] VITALS: RESP 11
--- NOTE | 2018-11-21 09:11 | ED PDOC ---
- Laboratory Results Result Diagrams: 11/21/18 04:37 11/21/18 04:37 Lab Results: Total Bilirubin 0.4 mg/dl (0.2-1.3) 11/21/18 04:37 AST 40 U/L (17-59) 11/21/18 04:37 ALT 44 U/L (21-72) 11/21/18 04:37 Alkaline Phosphatase 59 U/L (38-126) 11/21/18 04:37 Total Protein 6.3 G/DL (6.3-8.2) 11/21/18 04:37 Albumin 3.4 g/dL (3.5-5.0) L 11/21/18 04:37 Globulin 2.9 gm/dL (2.2-3.9) 11/21/18 04:37 Albumin/Globulin Ratio 1.2 (1.0-2.1) 11/21/18 04:37 - ECG O2 Sat by Pulse Oximetry: 96 - Progress Re-evaluation Time: 09:10 Condition: Improved Disposition - Clinical Impression Clinical Impression: Abdominal pain, Diverticulosis - POA Present On Arrival: None - Disposition Referrals: [facility] [Outside] Disposition: Routine/Home Disposition Time: 09:10 Condition: STABLE Prescriptions: Dicyclomine [Dicyclomine HCl] 10 mg PO Q8 #10 cap Instructions: Diverticulosis (DC) Forms: [employer] (Frisian)
[2018-11-21 09:24] LABS: SQUAMOUS EPITHIAL < 1 /hpf (0-5); URINE BILIRUBIN NEGATIVE (NEGATIVE); URINE BLOOD NEGATIVE (NEGATIVE); URINE CLARITY CLEAR (Clear); URINE COLOR YELLOW (YELLOW); URINE GLUCOSE (UA) NEG (NEGATIVE); URINE LEUKOCYTE ESTERASE NEG Leu/uL (Negative); URINE PROTEIN NEGATIVE (NEGATIVE); URINE UROBILINOGEN 0.2-1.0 mg/dL (0.2-1.0)
--- NOTE | 2018-11-21 11:34 | CT ---
Date of service: 11/21/2018 PROCEDURE: CT Abdomen and Pelvis with contrast HISTORY: abd pain COMPARISON: None. TECHNIQUE: Following oral and intravenous contrast administration, a CT examination of the abdomen and pelvis was performed from the domes of the diaphragms to the symphysis pubis with reformatted datasets provided not only axial but also sagittal and coronal series. Contrast dose: Omnipaque 300, 90 cc Radiation dose: Total exam DLP = 230.08 mGy-cm. This CT exam was performed using one or more of the following dose reduction techniques: Automated exposure control, adjustment of the mA and/or kV according to patient size, and/or use of iterative reconstruction technique. FINDINGS: LOWER THORAX: Unremarkable. LIVER: Unremarkable. No gross lesion or ductal dilatation. GALLBLADDER AND BILE DUCTS: Unremarkable. PANCREAS: Unremarkable. No gross lesion or ductal dilatation. SPLEEN: Unremarkable. ADRENALS: Unremarkable. No mass. KIDNEYS AND URETERS: Unremarkable. No hydronephrosis. No solid mass. VASCULATURE: Unremarkable. No aortic aneurysm. No aortic atherosclerotic calcification or mural plaque present. BOWEL: Evaluation of the gastrointestinal tract is limited due to the lack of oral contrast administration. Narrowed segment of mid sigmoid colon potentially on the basis of peristalsis though stricture or other lesion is not excluded. No obstruction. APPENDIX: Normal appendix. PERITONEUM: There is a tiny Bochdalek hernia containing only fat at the right hemidiaphragm. No free fluid. No free air. LYMPH NODES: Unremarkable. No enlarged lymph nodes. BLADDER: Distended but thin walled urinary bladder. No radiodense urolithiasis related. REPRODUCTIVE: Questionable prostate gland enlargement. Prostate gland is difficult to separate from the seminal vesicles and prominent central vessels may be present instead. BONES: No acute fracture. OTHER FINDINGS: None. IMPRESSION: No bowel obstruction, ascites, free intra peritoneal gas, abscess or urinary tract obstruction identified. Questionable prostate gland enlargement versus seminal vesicle enlargement adjacent to the prostate gland. Tiny but look hernia identified containing only peritoneal fat. Normal peristalsis, stricture or other lesion at the narrowed segment of mid to distal sigmoid colon. Clinically correlate further. Retained fecal material and lack of oral contrast material limited evaluation the gastrointestinal tract. Preliminary report provided by Ailyn, 11/21/2018, 7:22 a.m..
== END 2018-11-21 09:11 | disposition home or self-care (01) ==
LOC: H.ER 02:58
DX: K57.90 Diverticulosis of intestine, part unspecified, without perforation or abscess without bleeding (principal); R10.9 Unspecified abdominal pain; F17.210 Nicotine dependence, cigarettes, uncomplicated
CPT/HCPCS: 74177; 80053; 81003; 85025; 87086; 99284; Q9966; Q9967

== ENCOUNTER 2018-12-02 05:13 | Emergency (ER) | payer SELFPAY ==
[2018-12-02 05:40] VITALS: BP 110/79; PULSE 80; RESP 17; TEMP 97.8; O2SAT 100
--- NOTE | 2018-12-02 05:52 | ED PDOC ---
HPI: Male Pain Time Seen by Provider: 12/02/18 05:24 Chief Complaint (Nursing): Male Genitourinary Chief Complaint (Provider): Male Genitourinary History Per: Patient History/Exam Limitations: no limitations Associated Symptoms: denies: Fever, Vomiting Additional Complaint(s): 48 y/o male with history of drug abuse, presents to the ED complaining of right inguinal hernia pain. Patient reports he was diagnosed about a month ago. He states he feels a ball popping in and out causing him right groin pain. Patient has been having normal bowel movements and denies any vomiting or fevers. Pat ient states the pain radiates into his scrotum but denies scrotum pain. Past Medical History Reviewed: Historical Data, Nursing Documentation, Vital Signs Vital Signs: Last Vital Signs Temp 97.8 F 12/02/18 05:38 Pulse 80 12/02/18 05:38 Resp 17 12/02/18 05:38 BP 110/79 12/02/18 05:38 Pulse Ox 100 12/02/18 05:38 - Medical History PMH: Denies: Depression, Diabetes, Hepatitis, HIV, HTN, Seizures, Sexually Transmitted Disease Other PMH: Drug Abuse - Family History Family History: States: Unknown Family Hx - Immunization History Hx Tetanus Toxoid Vaccination: No Hx Influenza Vaccination: No Hx Pneumococcal Vaccination: No - Home Medications Home Medications: Ambulatory Orders Medication Instructions Recorded Naproxen [Naprosyn] 500 mg PO Q12 PRN #20 tablet 09/20/18 Albuterol HFA [Ventolin HFA 90 1 - 2 puff IH Q6 PRN #1 inhaler 11/02/18 mcg/actuation (8 g)] predniSONE [predniSONE Tab] 60 mg PO QAM #12 tab 11/02/18 Naproxen [Naprosyn] 500 mg PO BID #30 tablet 11/17/18 Dicyclomine [Dicyclomine HCl] 10 mg PO Q8 #10 cap 11/21/18 Ibuprofen [Motrin Tab] 600 mg PO Q6 #30 tab 12/02/18 - Allergies Allergies/Adverse Reactions: Allergies Allergy/AdvReac Type Severity Reaction Status Date / Time No Known Allergies Allergy Verified 12/02/18 05:40 Review of Systems ROS Statement: Except As Marked, All Systems Reviewed And Found Negative Constitutional: Negative for: Fever Gastrointestinal: Negative for: Vomiting Musculoskeletal: Positive for: Other (Right groin pain) Physical Exam - Reviewed Nursing Documentation Reviewed: Yes Vital Signs Reviewed: Yes - Physical Exam Appears: Positive for: Well, Non-toxic, No Acute Distress Head Exam: Positive for: ATRAUMATIC, NORMAL INSPECTION, NORMOCEPHALIC Skin: Positive for: Normal Color, Warm, DRY Eye Exam: Positive for: EOMI, Normal appearance, PERRL ENT: Positive for: Normal ENT Inspection Neck: Positive for: Normal, Painless ROM Cardiovascular/Chest: Positive for: Regular Rate, Rhythm. Negative for: Murmur Respiratory: Positive for: Normal Breath Sounds. Negative for: Respiratory Distress Gastrointestinal/Abdominal: Positive for: Normal Exam, Soft, Other (No McB urney's Point tenderness). Negative for: Tenderness, Hernia Male Genital Exam: Positive for: no hernia. Negative for: hernia mass, scrotum tenderness (R), scrotum tenderness (L) Back: Positive for: Normal Inspection Extremity: Positive for: Normal ROM. Negative for: Pedal Edema, Deformity Neurological/Psych: Positive for: Awake, Alert, Normal Tone. Negative for: Motor/Sensory Deficits - ECG O2 Sat by Pulse Oximetry: 100 (RA) Pulse Ox Interpretation: Normal Medical Decision Making Medical Decision Making: Time: 05:45 A/P: Pain secondary to hernia. Not concerned for strangulation or incarceration. Patient has referral for surgery but he never followed up. Provider strongly advised patient to follow up as an outpatient. Recommend NSAIDs and ice. Patient is stable for discharge. * Motrin 600 mg Scribe Attestation: Documented by Brian Dempsey, acting as a scribe Ana Ye MD Provider Scribe Attestation: All medical record entries made by the Scribe were at my direction and personally dictated by me. I have reviewed the chart and agree that the record accurately reflects my personal performance of the history, physical exam, medical decision making, and the department course for this patient. I have also personally directed, reviewed, and agree with the discharge instructions and disposition Disposition - Clinical Impression Clinical Impression: Hernia - Disposition Referrals: [facility] [Outside] Disposition: Routine/Home Disposition Time: 05:45 Condition: GOOD Prescriptions: Ibuprofen [Motrin Tab] 600 mg PO Q6 #30 tab Instructions: Inguinal and Femoral (Groin) Hernias Forms: [employer] (Mozambican)
== END 2018-12-02 06:30 | disposition home or self-care (01) ==
LOC: H.ER 05:13
DX: K46.9 Unspecified abdominal hernia without obstruction or gangrene (principal)

== ENCOUNTER 2018-12-04 04:26 | Emergency (ER) | payer SELFPAY ==
[2018-12-04 04:42] VITALS: BP 103/64
[2018-12-04] MEDS ORDERED: Albuterol-Ipratrop 3 mg / 0.5 (3 ml) UD ONE (04:45)
[2018-12-04] MEDS ORDERED: Albuterol 0.083% Inhal Sol (2.5 mg/3 mL) UD INH STA (06:01)
[2018-12-04] MEDS ORDERED: Albuterol 0.083% Inhal Sol (2.5 mg/3 mL) UD ONE (06:17)
--- NOTE | 2018-12-04 06:25 | ED PDOC ---
HPI: Chest Pain Time Seen by Provider: 12/04/18 04:40 Chief Complaint (Nursing): Chest Pain Chief Complaint (Provider): CHEST TIGHTNESS History Per: Patient History/Exam Limitations: no limitations Onset/Duration Of Symptoms: Hrs Current Symptoms Are (Timing): Still Present Quality: Tightness Associated Symptoms: Dyspnea. denies: Nausea Additional History Per: Patient Additional Complaint(s): 48 Y/O MALE WITH HISTORY OF ASTHMA FOR C/O SOB AND CHEST TIGHTNESS. PATIENT STATES IT STARTED AT 8PM WHILE AT [employer], WHILE THERE PATIENT REPORTS HE FELL ASLEEP, HE WAS WOKEN UP AND TOLD HE HAD TO LEAVE. PATIENT STATES HE WALKED TO ED. DENIES FEVER, CHEST PAIN, SOB ON EXERTION, DIZZINESS. PATIENT WAS SEEN ON 11/07/2018 FOR SAME GIVEN PREDNISONE AND ALBUTEROL FOR HOME, PATIENT STATES HE DID NOT FILL SCRIPTS BECAUSE HIS "INSURANCE RAN OUT". Past Medical History Reviewed: Historical Data, Nursing Documentation, Vital Signs Vital Signs: Last Vital Signs Temp 97.8 F 12/04/18 04:40 Pulse 56 L 12/04/18 04:40 Resp 14 12/04/18 04:40 BP 103/64 12/04/18 04:40 Pulse Ox 98 12/04/18 04:40 - Medical History PMH: Denies: Depression, Diabetes, Hepatitis, HIV, HTN, Seizures, Sexually Transmitted Disease - Surgical History Surgical History: No Surg Hx - Family History Family History: States: Unknown Family Hx - Immunization History Hx Tetanus Toxoid Vaccination: No Hx Influenza Vaccination: No Hx Pneumococcal Vaccination: No - Home Medications Home Medications: Ambulatory Orders Medication Instructions Recorded Naproxen [Naprosyn] 500 mg PO Q12 PRN #20 tablet 09/20/18 Albuterol HFA [Ventolin HFA 90 1 - 2 puff IH Q6 PRN #1 inhaler 11/02/18 mcg/actuation (8 g)] predniSONE [predniSONE Tab] 60 mg PO QAM #12 tab 11/02/18 Naproxen [Naprosyn] 500 mg PO BID #30 tablet 11/17/18 Dicyclomine [Dicyclomine HCl] 10 mg PO Q8 #10 cap 11/21/18 Ibuprofen [Motrin Tab] 600 mg PO Q6 #30 tab 12/02/18 - Allergies Allergies/Adverse Reactions: Allergies Allergy/AdvReac Type Severity Reaction Status Date / Time No Known Allergies Allergy Verified 12/02/18 05:40 CORDELL Risk Score for UA/NSTEMI - CORDELL Risk Score Age > 64: NO 3 or more CAD Risk Factors: NO Known CAD (Stenosis greater than 50%): NO Aspirin use in past 7 days: NO Severe Angina: NO EKG ST changes greater than 0.5mm: NO Positive Cardiac Marker: NO CORDELL Score: 0 Risk %: 5% Curb-65 Severity Score - CURB-65 Severity Score Confusion: No Bun >19mg/dl (>7mmol/L): No Respiratory Rate greater than/equal to 30: No Systolic BP <90 or Diastolic BP less than/equal 60mmHg: No Age >64: No Curb-65 Score: 0 Percentage 30-day mortality: 0.6% Wells Criteria for PE - Wells Criteria for Pulmonary Embolism Clinical Signs and Symptoms of DVT: No P.E is #1 Diagnosis, or Equally Likely: No Heart Rate >100: No Immobilization at least 3 days;Surgery previous 4 weeks: No Previous, objectively diagnosed PE or DVT: No Hemoptysis: No Malignancy w/treatment within 6 months, or palliative: No Total Score: 0 Review of Systems ROS Statement: Except As Marked, All Systems Reviewed And Found Negative Constitutional: Negative for: Fever, Chills, Sweats, Weakness, Malaise Cardiovascular: Positive for: Chest Pain ("TIGHTNESS"). Negative for: Palpitations Respiratory: Positive for: Shortness of Breath. Negative for: Cough, SOB with Exertion, Wheezing Gastrointestinal: Negative for: Nausea, Vomiting, Abdominal Pain Physical Exam - Reviewed Nursing Documentation Reviewed: Yes Vital Signs Reviewed: Yes - Physical Exam Appears: Positive for: Well, Non-toxic, No Acute Distress Head Exam: Positive for: ATRAUMATIC, NORMAL INSPECTION, NORMOCEPHALIC Skin: Positive for: Normal Color, Warm, DRY Eye Exam: Positive for: Normal appearance, PERRL ENT: Positive for: Normal ENT Inspection Neck: Positive for: Normal, Painless ROM Cardiovascular/Chest: Positive for: Regular Rate, Rhythm Respiratory: Positive for: Normal Breath Sounds. Negative for: Accessory Muscle Use, Crackles, Rales, Rhonchi, Wheezing Gastrointestinal/Abdominal: Positive for: Normal Exam, Soft Back: Positive for: Normal Inspection Extremity: Positive for: Normal ROM Neurological/Psych: Positive for: Awake, Alert, Normal Tone, Oriented - ECG ECG Rhythm: Positive for: Sinus Bradycardia Interpretation Of Abn EKG: SIGNED AND VIEWED BY DR. STORY. PATIENT HAD EKG DONE ON 11/07/2018 WITH RATE OF 52. PATIENT HR INCREASES WHILE AWAKE. Rate: 47 O2 Sat by Pulse Oximetry: 98 Pulse Ox Interpretation: Normal Medical Decision Making Medical Decision Making: DUONEB X1 AFTER FIRST NEB PATIENT STATED FEELING SLIGHTLY BETTER, REPORTS HE STILL FEELS INTERMITTENT CHEST TIGHTNESS. PATIENT TO BE GIVEN ALBUTEROL NEB X1. IMPRESSION: BRONCHOSPASM, MALINGERING. 0600: HR: 63 WHILE AWAKE. PATIENT SLEEPING COMFORTABLY IN NO RESP DISTRESS. DR. STORY UPDATED ON COURSE OF TREATMENT. PT STABLE TO BE D/C. PATIENT HAS SCRIPT FOR PREDNISONE AND ALBUTEROL Disposition - Clinical Impression Clinical Impression: Bronchospasm - Patient ED Disposition Is Patient to be Admitted: No - Disposition Disposition: Routine/Home Disposition Time: 06:30 Condition: IMPROVED Instructions: Asthma, Adult (DC) Print Language: MAURITANIAN - POA Present On Arrival: None
[2018-12-04 06:53] VITALS: PULSE 48; RESP 19; TEMP 97.9; O2SAT 97
--- NOTE | 2018-12-04 15:19 | CARD ---
APPROVED REPORT Date of service: 12/04/2018 EKG Measurement Heart [id number] <Conclusion> Sinus bradycardia Rightward axis Pulmonary disease pattern Abnormal ECG
== END 2018-12-04 06:53 | disposition home or self-care (01) ==
LOC: H.ER 04:26
DX: J98.01 Acute bronchospasm (principal)

== ENCOUNTER 2018-12-18 04:00 | Emergency (ER) | payer SELFPAY ==
[2018-12-18 04:17] VITALS: BP 111/64; RESP 18; TEMP 97.6; O2SAT 100
[2018-12-18] MEDS ORDERED: Albuterol-Ipratrop 3 mg / 0.5 (3 ml) UD INH STA ×2 (04:22)
--- NOTE | 2018-12-18 04:57 | ED PDOC ---
HPI: Chest Pain Time Seen by Provider: 12/18/18 04:16 Chief Complaint (Nursing): Chest Pain Chief Complaint (Provider): Chest Pain History Per: Patient History/Exam Limitations: no limitations Onset/Duration Of Symptoms: Mins Additional Complaint(s): 48 y/o active smoker presents to the ED for evaluation of developing a cough associated with chest tightness and shortness of breath while smoking a cigarette approximately 30 minutes prior to arrival. Patient notes of smoking about one pack of cigarettes a day. Otherwise, patient denies fever, chills and sweats. PMD: no provider Past Medical History Reviewed: Historical Data, Nursing Documentation, Vital Signs Vital Signs: Last Vital Signs Temp 97.6 F 12/18/18 04:14 Pulse 74 12/18/18 04:32 Resp 18 12/18/18 04:14 BP 111/64 12/18/18 04:14 Pulse Ox 100 12/18/18 04:14 Primary Care Provider: FAMILY PROVIDER,NO - Medical History PMH: No Chronic Diseases Denies: Depression, Diabetes, Hepatitis, HIV, HTN, Seizures, Sexually Transmitted Disease - Surgical History Surgical History: No Surg Hx - Family History Family History: States: Unknown Family Hx - Living Arrangements Living Arrangements: With Family - Social History Current smoker - smoking cessation education provided: Yes SMOKER/PACKS PER DAY:: 1 - Immunization History Hx Tetanus Toxoid Vaccination: No Hx Influenza Vaccination: No Hx Pneumococcal Vaccination: No - Home Medications Home Medications: Ambulatory Orders Medication Instructions Recorded Naproxen [Naprosyn] 500 mg PO Q12 PRN #20 tablet 09/20/18 Albuterol HFA [Ventolin HFA 90 1 - 2 puff IH Q6 PRN #1 inhaler 11/02/18 mcg/actuation (8 g)] predniSONE [predniSONE Tab] 60 mg PO QAM #12 tab 11/02/18 Naproxen [Naprosyn] 500 mg PO BID #30 tablet 11/17/18 Dicyclomine [Dicyclomine HCl] 10 mg PO Q8 #10 cap 11/21/18 Ibuprofen [Motrin Tab] 600 mg PO Q6 #30 tab 12/02/18 Albuterol Sulfate [Ventolin Hfa] 1 puff IH Q4 PRN #1 ml 12/18/18 - Allergies Allergies/Adverse Reactions: Allergies Allergy/AdvReac Type Severity Reaction Status Date / Time No Known Allergies Allergy Verified 12/18/18 04:17 Review of Systems ROS Statement: Except As Marked, All Systems Reviewed And Found Negative Constitutional: Negative for: Fever, Chills, Sweats Cardiovascular: Positive for: Other (chest tightness) Respiratory: Positive for: Cough, Shortness of Breath Physical Exam - Reviewed Nursing Documentation Reviewed: Yes Vital Signs Reviewed: Yes - Physical Exam Appears: Positive for: No Acute Distress Head Exam: Positive for: ATRAUMATIC, NORMOCEPHALIC Skin: Positive for: Normal Color, Warm, Dry Eye Exam: Positive for: Normal appearance, EOMI, PERRL Neck: Positive for: Normal, Painless ROM Cardiovascular/Chest: Positive for: Regular Rate, Rhythm. Negative for: Murmur Respiratory: Positive for: Wheezing (bilateral expiratory wheezing). Negative for: Accessory Muscle Use Extremity: Positive for: Normal ROM. Negative for: Deformity Neurological/Psych: Positive for: Awake, Alert, Oriented (x3), Other (speaking full sentences) - ECG ECG: Positive for: Interpreted By Me, Viewed By Me ECG Rhythm: Positive for: Sinus Rhythm. Negative for: ST/T Changes Interpretation Of ECG: Pulmonary disease pattern noted on EKG. Rate: 55 O2 Sat by Pulse Oximetry: 100 (RA) Pulse Ox Interpretation: Normal Medical Decision Making Medical Decision Making: Time: 421 A/P: 48 y/o male presenting with asthma exacerbation. -- Not concerned for ACS, pneumonia, pneumothorax or other serious pathology at this time. -- Duoneb 3mg/0.5mg 3 ml INH -- Duoneb 3 mg/0.5md 3 ml INH -- Peak Flow Pre/Post Tx 630AM --PAtient no longer wheezing, well appearing --ADvised smoking cessation --Stable for outpatient followup Scribe Attestation: Documented by Nixon Purdy, acting as a scribe Ana Ye MD. Provider Scribe Attestation: All medical record entries made by the Scribe were at my direction and personally dictated by me. I have reviewed the chart and agree that the record accurately reflects my personal performance of the history, physical exam, medical decision making, and the department course for this patient. I have also personally directed, reviewed, and agree with the discharge instructions and disposition. Disposition - Clinical Impression Clinical Impression: Asthma - Patient ED Disposition Is Patient to be Admitted: No Counseled Patient/Family Regarding: Need For Followup, Rx Given, Smoking Cessation - Disposition Referrals: [facility] [Outside] Disposition: Routine/Home Disposition Time: 06:45 Condition: IMPROVED Prescriptions: Albuterol Sulfate [Ventolin Hfa] 1 puff IH Q4 PRN #1 ml PRN Reason: Wheezing Instructions: Asthma in Adults, Quitting Smoking Forms: [facility] (Bulgarian)
[2018-12-18 05:03] VITALS: PULSE 55
== END 2018-12-18 06:58 | disposition home or self-care (01) ==
LOC: H.ER 04:00
DX: J45.901 Unspecified asthma with (acute) exacerbation (principal); F17.210 Nicotine dependence, cigarettes, uncomplicated